=== PATIENT | female | born 1965 | race Caucasian/White ===

== ENCOUNTER 2025-08-01 08:06 | Outpatient (CLI) | payer BC ==
[2025-08-01 09:12] LABS: #Basophils 0.07 10x3/uL (0.0-0.2); #Eosinophils 0.22 10x3/uL (0.0-0.5); #Monocytes 0.47 10x3/uL (0.0-1.1); #Neutrophils 2.81 10x3/uL (1.5-8.4); %Basophils 1.2 % (0.0-2.0); %Eosinophils 3.7 % (0.0-6.0); %Lymphocytes 39.6 % (18.0-47.0); %Monocytes 7.9 % (0.0-10.0); %Neutrophils 47.4 % (40.0-75.0); Hematocrit 42.5 % (34.9-44.5); Hemoglobin 13.9 g/dL (12.0-15.5); Mean Corpuscular Hemoglobin 30.2 pg (27.0-33.0); Mean Corpuscular Volume 92.4 fL (81.6-98.3); Platelet Count 263 10x3/uL (150-450); Red Blood Cell (RBC) Count 4.60 10x6/uL (3.90-5.03); White Blood Cell (WBC) Count 5.93 10x3/uL (3.5-10.5)
[2025-08-01 11:38] LABS: Anion Gap 12 mmol/L (10-20); BUN (Urea Nitrogen) 16 mg/dL (9.8-20.1); Calc. Creatinine Clearance 0 mL/min (70-130); Calcium 8.7 mg/dL (7.8-10.44); Carbon Dioxide 25 mmol/L (22-29); Chloride 107 mmol/L (98-107); Glucose 100 mg/dL (70-105); Potassium 4.2 mmol/L (3.5-5.1); Sodium 140 mmol/L (136-145)
== END 2025-08-01 08:07 | disposition home or self-care (01) ==
LOC: CSHLAB 08:06
PROVIDERS: ATTEND Surgery
DX: Z01.818 Encounter for other preprocedural examination (principal); R44.9 Unspecified symptoms and signs involving general sensations and perceptions
CPT/HCPCS: 80048; 85025; 93005; 93010

== ENCOUNTER 2025-08-08 06:40 | Observation (INO) | payer BC ==
[2025-08-08] MEDS ORDERED: CEFAZOLIN 2 GM VIAL ONE (08:26)
[2025-08-08] MEDS ORDERED: Bupivacaine/Epinephrine 0.25% 30 ML VIAL ONE ×2 (08:26→08:36)
[2025-08-08] MEDS ORDERED: Lidocaine 1% PF 5 ML VIAL ONE (08:29)
[2025-08-08] MEDS ORDERED: PROPOFOL 20 ML ONE (08:29)
[2025-08-08] MEDS ORDERED: Rocuronium Bromide 10 MG/ML (10ML VIAL) ONE (08:29)
[2025-08-08] MEDS ORDERED: Famotidine/PF 20 mg/2ml Vial ONE (08:38)
[2025-08-08] MEDS ORDERED: SUCCINYLCHOLINE/SOD CL,ISO/PF 200 MG/10 ML SYRINGE FS ONE (09:12)
[2025-08-08] MEDS ORDERED: PHENYLEPHRINE-NS 100 MCG/ML 10 ML SYRINGE ONE (09:24)
[2025-08-08] MEDS ORDERED: Albuterol HFA (OR) 200 PUFF INH ONE (10:13)
[2025-08-08] MEDS ORDERED: Ketorolac Tromethamine 30 MG (1 mL) VIAL ONE (10:15)
[2025-08-08] MEDS ORDERED: SUGAMMADEX SODIUM 200 MG/2 ML VIAL ONE (10:15)
[2025-08-08] MEDS ORDERED: Glucagon 1 MG/ML KIT IM PRN (10:18)
[2025-08-08] MEDS ORDERED: Dextrose 50% Abboject 50 ML SYRINGE SLOW IVP PRN (10:18)
[2025-08-08] MEDS ORDERED: hydrALAZINE 20 MG/ML VIAL SLOW IVP PRN (10:18)
[2025-08-08 13:15] VITALS: BMI 34.5
[2025-08-08] MEDS: D5 1/2 NS w/20 mEq KCL 1,000 ML IV SCH (14:04)
[2025-08-08] MEDS: Acetaminophen 500 MG TAB PO SCH (14:05)
[2025-08-08] MEDS: oxyCODONE 5 MG TAB PO PRN (14:05)
[2025-08-08] MEDS ORDERED: Non-Formulary Medication 1 EACH (Lubiprostone [Amitiza] 24 MCG Cap) PO SCH (17:00)
[2025-08-08] MEDS: Ondansetron PF 4 MG/2 ML Vial IVP PRN (23:43)
[2025-08-09] MEDS: Ipratropium Bromide 2.5 ml Neb NEB SCH (08:15)
[2025-08-09] MEDS: Mometasone 100 MCG/Formoterol 5 MCG 60 PUFF AEROSOL INH SCH (08:17)
[2025-08-09] MEDS: Sertraline 100 MG TAB PO SCH (08:46)
[2025-08-09] MEDS: Enoxaparin 40 MG (0.4 mL) SYRINGE SC SCH (08:46)
[2025-08-09] MEDS: Pantoprazole 40 MG VIAL IVP SCH (08:47)
[2025-08-09] MEDS: FLU (Fluarix Triv) 25-26 (6MOS UP)/PF 45 MCG/0.5 ML Syringe IM ONE (08:47)
[2025-08-09] MEDS: D5 1/2 NS w/20 mEq KCL 1,000 ML IV SCH (08:57)
[2025-08-09 17:27] VITALS: BP 123/80; TEMP 98
== END 2025-08-09 13:30 | disposition home or self-care (01) ==
LOC: CSHSDC 06:40 → CSHTELE 12:47
PROVIDERS: ADMIT Surgery; ATTEND Surgery
PROC: 0BQT3ZZ Repair Diaphragm, Percutaneous Approach (ICD-10-PCS; principal; 2025-08-08)
DX: K44.9 Diaphragmatic hernia without obstruction or gangrene (principal); K21.00 Gastro-esophageal reflux disease with esophagitis, without bleeding; Z91.040 Latex allergy status; Z88.1 Allergy status to other antibiotic agents; Z88.6 Allergy status to analgesic agent; Z88.8 Allergy status to other drugs, medicaments and biological substances; Z79.899 Other long term (current) drug therapy
CPT/HCPCS: 94640; J1100; J1308; J1650; J1885; J2250; J2405; J2470; J2704; J3010; J3480; J7644; S2900